=== PATIENT | female | born 2000 | race Hispanic/Latino ===

== ENCOUNTER 2020-05-19 13:49 | Emergency (ER) | payer OTHER ==
[~2020-05-19] VITALS: Ht 167.6 cm; Wt 82.1 kg
--- NOTE | 2020-05-19 14:21 | Emergency Department Note ---
History of Present Illnes History of Present Illness Chief Complaint: Genitourinary History of Present Illness This is a 19 year old female dysuria . Historian: Patient Arrival Mode: Car Onset (how long ago): day(s) (2) Location: suprapubic Quality: dull Radiation: Denies non-radiation, Denies back, Denies neck, Denies extremity, Denies abdomen, Denies periumbilical, Denies flank, Denies proximal, Denies distal, Denies other Severity: mild Onset quality: gradual Duration (how long): day(s) (2) Timing of current episode: constant Progression: waxing and waning Chronicity: new Context: Denies recent illness, Denies recent surgery, Denies recent immobiliz ation, Denies recent travel, Denies trauma/injury, Denies new medications, Denies hx of DVT/PE, Denies non-compliance w/ medications, Denies other Relieving factors: none Exacerbating factors: none Associated symptoms: Denies denies other symptoms, Denies confusion, Denies chest pain, Denies cough, Denies diaphoresis, Denies fever/chills, Denies headaches, Denies loss of appetite, Denies malaise, Denies nausea/vomiting, Denies rash, Denies seizure, Denies shortness of breath, Denies syncope, Denies weakness, Denies other Treatments prior to arrival: none Past Medical/Family History Physician Review I have reviewed the patient's past medical and family history. Any updates have been documented here. Past Medical History Recent Fever: No Clinical Suspicion of Infectio: Yes New/Unexplained Change in Ment: No Past Medical History: UTI's Other Surgery: T&A SURGERY Social History Counseling Performed: No Alcohol Use: None Any Illegal Drug Use: No Other Any Pre-Existing Lines (PICC,: No Review of Systems Review of Systems Constitutional: Reports no symptoms EENTM: Reports no symptoms Cardiovascular: Reports no symptoms Respiratory: Reports no symptoms Gastrointestinal: Reports no symptoms Genitourinary: Reports as per HPI Musculoskeletal: Reports no symptoms Integumentary: Reports no symptoms Neurological: Reports no symptoms Psychological: Reports no symptoms Endocrine: Reports no symptoms Hematological/Lymphatic: Reports no symptoms Physical Exam Related Data Allergies: Coded Allergies: iodine (Verified Allergy, Intermediate, HIVES, 06/13/14) Triage Vital Signs Vital Signs Date Time Temp Pulse Resp B/P (MAP) Pulse Ox O2 Delivery O2 Flow Rate FiO2 05/19/20 13:58 97.8 88 16 140/88 100 Room Air Vital signs reviewed: Yes Physical Exam CONSTITUTIONAL Constitutional: Present well-developed, Present well-nourished HENT HENT: Present normocephalic, Present atraumatic, Present oropharynx clear/moist, Present nose normal HENT L/R: Present left ext ear normal, Present right ext ear normal EYES Eyes: Reports PERRL, Reports conjunctivae normal NECK Neck: Present ROM normal PULMONARY Pulmonary: Present effort normal, Present breath sounds normal CARDIOVASCULAR Cardiovascular: Present regular rhythm, Present heart sounds normal, Present capillary refill normal, Present normal rate GASTROINTESTINAL Abdominal: Present soft, Present nontender, Present bowel sounds normal GENITOURINARY Genitourinary: Present exam deferred SKIN Skin: Present warm, Present dry MUSCULOSKELETAL Musculoskeletal: Present ROM normal NEUROLOGICAL Neurological: Present alert, Present oriented x 3, Present no gross motor or sensory deficits PSYCHOLOGICAL Psychological: Present mood/affect normal, Present judgement normal Results Laboratory Lab results reviewed: Yes Assessment & Plan Medical Decision Making MDM uti cystitis Reassessment Reassessment same Assessment & Plan Final Impression: (1) Acute cystitis (2) UTI (urinary tract infection) Depart Disposition: HOME, SELF-CARE Last Vital Signs Date Time Temp Pulse Resp B/P (MAP) Pulse Ox O2 Delivery O2 Flow Rate FiO2 05/19/20 13:58 97.8 88 16 140/88 100 Room Air EVA PEÑA MD May 19, 2020 14:21
== END 2020-05-19 14:08 | disposition home or self-care (01) ==
LOC: FSED 14:00
DX: R30.0 Dysuria (principal); N30.00 Acute cystitis without hematuria
CPT/HCPCS: 81003; 81025; 99283

== ENCOUNTER 2020-08-11 13:41 | Observation (INO) | payer OTHER ==
[~2020-08-11] VITALS: Ht 170.2 cm; Wt 116.6 kg
[2020-08-11] MEDS ORDERED: SODIUM CHLORIDE 0.9% 1000ML 1,000 ML IV STA (13:50)
[2020-08-11] MEDS ORDERED: DIPHENHYDRAMINE HCL INJ 50 MG/ML VIAL IV ONE (14:00)
[2020-08-11] MEDS ORDERED: ACETAMIN/BUTALBITAL/CAFFEINE TAB PO ONE (14:00)
[2020-08-11] MEDS ORDERED: MAGNESIUM SULFATE 2GM/50ML 50 ML IV ONE (14:00)
[2020-08-11] MEDS ORDERED: METOCLOPRAMIDE HCL 10 MG/2ML VIAL IV ONE (14:00)
[2020-08-11 14:35] LABS: BASOPHILS % 0.3 % (0.0-1.0); EOSINOPHILS # (AUTO) 0.1 (0.0-0.4); EOSINOPHILS % 1.1 % (0.0-6.0); HEMATOCRIT 41.9 % (34.2-44.1); HEMOGLOBIN 13.7 g/dL (12.0-16.0); LYMPHOCYTES % 14.9 % (18.0-39.1); MEAN CORPUSCULAR HEMOGLOBIN 26.7 pg (28-32); MEAN CORPUSCULAR HGB CONC 32.7 g/dL (31-35); MEAN CORPUSCULAR VOLUME 81.5 fL (81-99); MONOCYTES # (AUTO) 0.8 (0.2-0.8); MONOCYTES % 5.7 % (4.4-11.3); NEUTROPHILS # (AUTO) 10.2 (2.1-6.9); NEUTROPHILS % 77.5 % (38.7-80.0); PLATELET COUNT 377 x10e3/uL (140-360); RED BLOOD COUNT 5.14 x10e6/uL (3.6-5.1); RED CELL DISTRIBUTION WIDTH 13.3 % (11.7-14.4)
[2020-08-11 14:52] LABS: ALANINE AMINOTRANSFERASE 20 IU/L (0-55); ALBUMIN/GLOBULIN RATIO 1.1 (0.8-2.0); ALKALINE PHOSPHATASE 92 IU/L (40-150); ANION GAP 14.8 mmol/L (8-16); BLOOD UREA NITROGEN 14 mg/dL (7-26); BUN/CREATININE RATIO 18 (6-25); CALCIUM 9.4 mg/dL (8.4-10.2); CARBON DIOXIDE 25 mmol/L (22-29); CHLORIDE 104 mmol/L (98-107); CREATININE, SERUM 0.79 mg/dL (0.57-1.11); EST GLOMERULAR FILTRATION RATE > 60 ML/MIN (60-); GLUCOSE 133 mg/dL (74-118); POTASSIUM 3.8 mmol/L (3.5-5.1); SODIUM 140 mmol/L (136-145)
[2020-08-11] MEDS: ACETAMIN/BUTALBITAL/CAFFEINE TAB PO PRN ×2 (17:53→23:58)
[2020-08-11 18:24] VITALS: BP 139/70
[2020-08-11 20:00] VITALS: BP 119/68
[2020-08-11] MEDS ORDERED: DIHYDROERGOTAMINE MESYLATE 1 MG/ML AMP IV PRN (20:15)
[2020-08-11] MEDS ORDERED: SODIUM CHLORIDE 0.9% 250ML 250 ML ONE (20:26)
[2020-08-11] MEDS: PROMETHAZINE 25MG/ NS 50ML (IV) IV SCH (20:31)
[2020-08-11 21:59] VITALS: BP 119/68
[2020-08-11] MEDS ORDERED: DIHYDROERGOTAMINE MESYLATE 1 MG/ML AMP IV SCH ×2 (22:00)
[2020-08-12] VITALS: BP 133/87
[2020-08-12 04:00] VITALS: BP 113/66
[2020-08-12] MEDS: PROMETHAZINE 25MG/ NS 50ML (IV) IV SCH ×2 (04:21→12:00)
[2020-08-12 06:19] LABS: BASOPHILS % 0.4 % (0.0-1.0); EOSINOPHILS # (AUTO) 0.1 (0.0-0.4); EOSINOPHILS % 1.2 % (0.0-6.0); HEMATOCRIT 40.6 % (34.2-44.1); HEMOGLOBIN 13.1 g/dL (12.0-16.0); LYMPHOCYTES # (AUTO) 3.1 (1.0-3.2); MEAN CORPUSCULAR HEMOGLOBIN 26.5 pg (28-32); MEAN CORPUSCULAR HGB CONC 32.3 g/dL (31-35); MEAN CORPUSCULAR VOLUME 82.2 fL (81-99); MONOCYTES # (AUTO) 0.8 (0.2-0.8); MONOCYTES % 7.6 % (4.4-11.3); NEUTROPHILS # (AUTO) 6.5 (2.1-6.9); NEUTROPHILS % 61.4 % (38.7-80.0); PLATELET COUNT 357 x10e3/uL (140-360); RED BLOOD COUNT 4.94 x10e6/uL (3.6-5.1); RED CELL DISTRIBUTION WIDTH 13.6 % (11.7-14.4)
[2020-08-12 06:45] LABS: ALANINE AMINOTRANSFERASE 18 IU/L (0-55); ALBUMIN 3.8 g/dL (3.5-5.0); ALBUMIN/GLOBULIN RATIO 1.2 (0.8-2.0); ALKALINE PHOSPHATASE 81 IU/L (40-150); ANION GAP 10.6 mmol/L (8-16); BLOOD UREA NITROGEN 9 mg/dL (7-26); BUN/CREATININE RATIO 12 (6-25); CALCIUM 9.1 mg/dL (8.4-10.2); CARBON DIOXIDE 26 mmol/L (22-29); CHLORIDE 106 mmol/L (98-107); CREATININE, SERUM 0.73 mg/dL (0.57-1.11); EST GLOMERULAR FILTRATION RATE > 60 ML/MIN (60-); GLUCOSE 95 mg/dL (74-118); POTASSIUM 3.6 mmol/L (3.5-5.1); SODIUM 139 mmol/L (136-145)
[2020-08-12] MEDS: ACETAMIN/BUTALBITAL/CAFFEINE TAB PO PRN (07:07)
[2020-08-12 07:42] VITALS: BP 113/66
[2020-08-12] MEDS ORDERED: VALPROATE SOD INJ STA (07:50)
[2020-08-12] MEDS ORDERED: SODIUM CHLORIDE 0.9% INJ STA (07:50)
[2020-08-12 08:14] VITALS: BP 111/63
[2020-08-12] MEDS ORDERED: VALPROATE SOD IV ONE (09:00)
[2020-08-12] MEDS ORDERED: SODIUM CHLORIDE 0.9% IV ONE (09:00)
[2020-08-12 09:10] LABS: INR 1.06; PROTHROMBIN TIME 14.3 seconds (11.9-14.5)
[2020-08-12] MEDS ORDERED: LIDOCAINE HCL 1% LOCAL INJ 20 ML VIAL ONE (09:26)
[2020-08-12 11:55] VITALS: BP 122/79
[2020-08-12] MEDS ORDERED: GADOBENATE DIMEGLUMINE 1 ML IV ONE (12:10)
[2020-08-12 12:48] LABS: APPEARANCE,CSF BLOODY (CLEAR); COLOR,CSF RED (COLORLESS); TUBE NUMBER 3
[2020-08-12 13:10] LABS: WHITE BLOOD CELL,CSF 110 cells/uL (0-5)
[2020-08-12 13:51] LABS: LYMPHOCYTES,CSF 34 % (40-80); MONOCYTES,CSF 3 %; NEUTROPHILS,CSF 63 % (0-6)
[2020-08-12 16:02] VITALS: BP 136/67
[2020-08-12 21:27] LABS: TOTAL PROTEIN,CSF 85.4 mg/dL (15-40)
== END 2020-08-12 18:39 | disposition home or self-care (01) ==
LOC: ER 13:51 → ERHOLD 16:37 → MED/SURG 16:57
PROVIDERS: ADMIT Internal Medicine Critical Care Medicine; ATTEND Internal Medicine Critical Care Medicine
DX: G43.911 Migraine, unspecified, intractable, with status migrainosus (principal); Z20.828 Contact with and (suspected) exposure to other viral communicable diseases; M47.812 Spondylosis without myelopathy or radiculopathy, cervical region; E66.01 Morbid (severe) obesity due to excess calories; Z68.41 Body mass index [BMI] 40.0-44.9, adult; F12.10 Cannabis abuse, uncomplicated; R03.0 Elevated blood-pressure reading, without diagnosis of hypertension
CPT/HCPCS: 36415 ×2; 62328; 70553; 72141; 74470; 80053 ×2; 81025; 82945; 84157; 85025 ×2; 85610; 86592; 86789; 87070; 87205; 89051; 99284; A9577; G0378 ×2; J1110; J1200; J2001; J2550 ×2; J2765; J3475; J7030; J7050; U0002

== ENCOUNTER 2020-10-19 06:39 | Emergency (ER) | payer OTHER ==
[~2020-10-19] VITALS: Ht 170.2 cm; Wt 113.4 kg
== END 2020-10-19 08:00 | disposition home or self-care (01) ==
LOC: FSED 07:20
DX: R30.0 Dysuria (principal); N39.0 Urinary tract infection, site not specified; F41.9 Anxiety disorder, unspecified
CPT/HCPCS: 81003; 81025; 99283

== ENCOUNTER 2021-10-23 23:17 | Emergency (ER) | payer OTHER ==
[~2021-10-23] VITALS: Ht 170.2 cm; Wt 113.4 kg
[2021-10-24] MEDS ORDERED: PREDNISONE50 MG PO (00:09)
== END 2021-10-24 00:13 | disposition home or self-care (01) ==
LOC: ER 23:58
DX: G51.0 Bell's palsy (principal)
CPT/HCPCS: 99283